=== PATIENT | female | born 1960 | race African-American/Black ===

== ENCOUNTER 2022-01-06 14:27 | Emergency (ER) | payer OTHER ==
[~2022-01-06] VITALS: Ht 167.6 cm; Wt 77.1 kg
[2022-01-06] MEDS ORDERED: TYLENOL EXTRA500 MG PO (16:26)
== END 2022-01-06 16:40 | disposition home or self-care (01) ==
LOC: ER 14:35
DX: M25.552 Pain in left hip (principal); Z88.6 Allergy status to analgesic agent
CPT/HCPCS: 99283

== ENCOUNTER → 2022-11-26 | Outpatient (CLI) | payer OTHER ==
[~2022-11-26] MED LIST: ACETAMINOPHEN 1000 MG/100 ML 100 ML IV ONE; BUPIVACAINE HCL 0.5% INJ 30 ML VIAL INJ ONE; LIDOCAINE HCL 1% LOCAL INJ 20 ML VIAL ONE; METHYLPREDNISOLONE ACETATE 80 MG/ML VIAL ONE; TYLENOL EXTRA500 MG PO
== END | disposition home or self-care (01) ==
LOC: CARD 06:33 → OR 06:47 → EDSTATUS 09:30
PROVIDERS: ATTEND Orthopaedic Surgery
DX: M70.62 Trochanteric bursitis, left hip (principal); Z53.8 Procedure and treatment not carried out for other reasons; Z01.810 Encounter for preprocedural cardiovascular examination
CPT/HCPCS: 93005; J0131; J2001

== ENCOUNTER 2022-12-22 08:41 | Emergency (ER) | payer OTHER ==
[~2022-12-22] VITALS: Ht 167.6 cm; Wt 77.1 kg
[~2022-12-22 08:41] MED LIST changes: -ACETAMINOPHEN 1000 MG/100 ML 100 ML IV ONE; -BUPIVACAINE HCL 0.5% INJ 30 ML VIAL INJ ONE; -LIDOCAINE HCL 1% LOCAL INJ 20 ML VIAL ONE; -METHYLPREDNISOLONE ACETATE 80 MG/ML VIAL ONE
[2022-12-22 08:42] VITALS: O2SAT 100
[2022-12-22] MEDS ORDERED: DEXAMETHASONE 4 MG TAB PO STA (08:57)
[2022-12-22] MEDS ORDERED: ULTRAM 50MG50 MG PO (08:58)
== END 2022-12-22 09:10 | disposition home or self-care (01) ==
LOC: ER 08:43
DX: M79.601 Pain in right arm (principal); M77.8 Other enthesopathies, not elsewhere classified; X50.3XXA Overexertion from repetitive movements, initial encounter; I10 Essential (primary) hypertension
CPT/HCPCS: 99283; J8540

== ENCOUNTER 2023-05-31 18:38 | Emergency (ER) | payer OTHER ==
[~2023-05-31] VITALS: Ht 167.6 cm; Wt 77.1 kg
[~2023-05-31 18:38] MED LIST changes: +ULTRAM 50MG50 MG PO
[2023-05-31 18:51] VITALS: O2SAT 99
[2023-05-31] MEDS ORDERED: FAMOTIDINE 20 MG TAB PO STA (18:56)
[2023-05-31] MEDS ORDERED: PREDNISONE 20 MG TAB PO STA (18:56)
[2023-05-31] MEDS ORDERED: FAMOTIDINE 20 MG TAB ONE (19:04)
[2023-05-31] MEDS ORDERED: PREDNISONE20 MG PO (19:07)
[2023-05-31] MEDS ORDERED: CEPHALEXIN500 MG PO (19:07)
[2023-05-31] MEDS ORDERED: PEPCID20 MG PO (19:07)
[2023-05-31] MEDS ORDERED: BENADRYL25 M1 PO (19:51)
== END 2023-05-31 20:00 | disposition home or self-care (01) ==
LOC: ER 18:50
DX: R21 Rash and other nonspecific skin eruption (principal); L29.9 Pruritus, unspecified; I10 Essential (primary) hypertension
CPT/HCPCS: 99282; J7512

== ENCOUNTER 2023-08-01 09:50 | Emergency (ER) | payer OTHER ==
[~2023-08-01] VITALS: Ht 167.6 cm; Wt 74.8 kg
[~2023-08-01 09:50] MED LIST changes: +BENADRYL25 M1 PO; +CEPHALEXIN500 MG PO; +PEPCID20 MG PO; +PREDNISONE20 MG PO
[2023-08-01] MEDS ORDERED: CYCLOBENZAPRINE HCL 10 MG TAB ONE (10:13)
[2023-08-01] MEDS ORDERED: CYCLOBENZAPRINE HCL 10 MG TAB PO ONE (10:15)
[2023-08-01] MEDS ORDERED: CYCLOBENZAPRINE10 MG PO (12:00)
[2023-08-01 12:21] VITALS: O2SAT 100
== END 2023-08-01 12:20 | disposition home or self-care (01) ==
LOC: ER 09:53
DX: M54.50 Low back pain, unspecified (principal); R19.09 Other intra-abdominal and pelvic swelling, mass and lump; M25.552 Pain in left hip
CPT/HCPCS: 72131; 72192; 99283

== ENCOUNTER 2024-09-26 13:56 | Emergency (ER) | payer OTHER ==
[~2024-09-26] VITALS: Ht 167.6 cm; Wt 79.4 kg
[~2024-09-26 13:56] MED LIST changes: +CYCLOBENZAPRINE10 MG PO; +ECOTRIN81 MG PO; +FAMOTIDINE20 MG PO; +METOPROLOL TART50 MG PO; +NO HOME MEDS; +PRAVASTATIN SOD10 MG PO
[2024-09-26 14:17] VITALS: PULSE 83; RESP 18; TEMP 97.9
[2024-09-26] MEDS: HYDROCODONE/APAP 5MG-325MG TAB PO ONE (15:09)
[2024-09-26] MEDS: ORPHENADRINE CITRATE 30 MG/ML VIAL IM ONE (15:10)
[2024-09-26] MEDS: DEXAMETHASONE SOD PHOS 10 MG/1 ML VIAL IM ONE (15:10)
[2024-09-26 15:28] LABS: CLARITY,URINE TURBID (CLEAR); COLOR,URINE YELLOW (YELLOW); GLUCOSE, URINE NEGATIVE (NEGATIVE); LEUKOCYTE ESTERASE ,URINE NEGATIVE (NEGATIVE); NITRITE,URINE NEGATIVE (NEGATIVE); PH,URINE 7 (5 - 7); PROTEIN,URINE DIPSTICK NEGATIVE (NEGATIVE)
[2024-09-26 15:29] LABS: AMORPHOUS SEDIMENT,URINE MODERATE; BACTERIA,URINE MANY /HPF; BILIRUBIN,URINE NEGATIVE (NEGATIVE); EPITHELIAL CELLS,URINE FEW /LPF; KETONES,URINE NEGATIVE (NEGATIVE); RBC,URINE 0-5 /HPF (0-5); URINE UROBILINOGEN >=8 mg/dL (0.2 - 1); WBC,URINE (MAN) 0-5 /HPF (0-5)
[2024-09-26] MEDS ORDERED: METHOCARBAMOL500 MG PO (15:54)
[2024-09-26] MEDS ORDERED: MEDROL4 M2 PO (15:54)
[2024-09-26] MEDS ORDERED: ULTRAM 50MG50 MG PO (15:54)
[2024-09-26 16:11] VITALS: BP 148/70; PULSE 89; RESP 16; TEMP 98.2; O2SAT 98
== END 2024-09-26 16:15 | disposition home or self-care (01) ==
LOC: ER 14:47
DX: M54.42 Lumbago with sciatica, left side (principal); M54.41 Lumbago with sciatica, right side; R10.32 Left lower quadrant pain
CPT/HCPCS: 36415; 81001; 82948; 87086; 99283; J1100; J2360